=== PATIENT | female | born 1960 | race Caucasian/White ===

== ENCOUNTER 2017-09-23 17:36 | Emergency (ER) | payer OTHER ==
[2017-09-23 17:51] VITALS: O2SAT 97
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
[2017-09-23 19:13] VITALS: BP 135/75; PULSE 78; RESP 18; TEMP 98.6
== END 2017-09-23 19:16 | disposition home or self-care (01) ==
DX: S16.1XXA Strain of muscle, fascia and tendon at neck level, initial encounter (principal); S39.012A Strain of muscle, fascia and tendon of lower back, initial encounter; V49.40XA Driver injured in collision with unspecified motor vehicles in traffic accident, initial encounter; Y92.410 Unspecified street and highway as the place of occurrence of the external cause; Y99.8 Other external cause status; Y93.89 Activity, other specified